=== PATIENT | male | born 1990 | race Caucasian/White ===

== ENCOUNTER 2024-04-16 16:00 | Emergency (ER) | payer MEDICAID ==
[~2024-04-16] VITALS: Ht 177.8 cm; Wt 90.7 kg
[2024-04-16 16:03] VITALS: BP_SYST 173; PULSE 110; RESP 17; TEMP 98.7; O2SAT 96
[2024-04-16] MEDS: NACL 0.9% 1,000 ML IV ONE (16:57)
[2024-04-16 16:59] LABS: BASOPHILS % (AUTO) 0.4 % (0.0-2.0); EOSINOPHILS % (AUTO) 0.1 % (0.0-4.0); HEMATOCRIT 44.5 % (36-54); HEMOGLOBIN 15.4 g/dL (14.0-18.0); LYMPHOCYTES # (AUTO) 0.6 K/uL (1.0-5.5); LYMPHOCYTES % (AUTO) 4.7 % (20.5-51.5); MEAN CORPUSCULAR HEMOGLOBIN 30 pg (27-31); MEAN CORPUSCULAR HGB CONC 35 % (32-36); MEAN CORPUSCULAR VOLUME 87 fL (79.0-98.0); MONOCYTES # (AUTO) 0.7 K/uL (0.0-1.0); MONOCYTES % (AUTO) 5.5 % (1.7-9.3); NEUTROPHILS # (AUTO) 10.9 K/uL (1.8-7.7); NEUTROPHILS % (AUTO) 89.3 % (40.0-70.0); PLATELET COUNT (AUTO) 401 K/uL (130-430); RED BLOOD CELL COUNT(AUTO) 5.13 MIL/uL (4.2-6.2); RED CELL DISTRIBUTION WIDTH 15.6 % (9.0-15.0); WHITE BLOOD COUNT (AUTO) 12.2 K/uL (4.8-10.8)
[2024-04-16] MEDS: KETOROLAC TROMETHAMINE 30 MG VIAL IVP ONE (17:07)
[2024-04-16] MEDS: ONDANSETRON HCL 4 MG/2 ML VIAL IVP ONE (17:07)
[2024-04-16 17:15] LABS: ANION GAP 15 (5-15); CALCIUM 9.9 mg/dL (8.4-11.0); CARBON DIOXIDE 23 mmol/L (23-29); CHLORIDE 104 mmol/L (98-107); CREATINE KINASE, TOTAL 608 U/L (39-308); GFR AFRICAN AMERICAN 48 mL/min (>90); GLUCOSE 82 mg/dL (74-106); LIPASE 66 U/L (16-77); POTASSIUM 3.6 mmol/L (3.5-5.1); SODIUM SERUM 142 mmol/L (136-145); UREA NITROGEN, BLOOD 18 mg/dL (8-21)
[2024-04-16 17:18] LABS: ALCOHOL, BLOOD < 3 mg/dL (<10); GFR NON AFRICAN-AMERICAN 39 mL/min (>90)
[2024-04-16 17:46] LABS: CKMB RELATIVE INDEX 0.6 (0.0-2.9); CREATINE KINASE MB 3.5 ng/mL (0-3.6)
[2024-04-16] MEDS: cefTRIAXone 1 GM IVPB PREMIX 50 ML IV ONE (18:13)
[2024-04-16 19:43] LABS: BLOOD, URINE 1+ (NEGATIVE); CLARITY/URINE CLEAR (CLEAR); COLOR,URINE YELLOW (YELLOW); GLUCOSE,URINE NEGATIVE (NEGATIVE); KETONES,URINE 3+ (NEGATIVE); LEUKOCYTE ESTERASE ,URINE NEGATIVE (NEGATIVE); NITRITE, URINE NEGATIVE (NEGATIVE); PROTEIN URINE 1+ (NEGATIVE); UROBILINOGEN,URINE 0.2 (0.2-1.0)
[2024-04-16 19:56] LABS: BACTERIA,URINE RARE /HPF (None Seen); BILIRUBIN,URINE 1+ (NEGATIVE); MUCUS,URINE None Seen /LPF (None Seen); RBC,URINE 0-3 /HPF (0-3); WBC,URINE 0-3 /HPF (0-3)
[2024-04-16 19:58] LABS: BARBITURATE, URINE NEGATIVE (NEG <=200); BENZODIAZEPINE, URINE NEGATIVE (NEG <=150); CANNABINOID, URINE POSITIVE (NEG <=50); COCAINE, URINE NEGATIVE (NEG <=150); METHAMPHETAMINES SCREEN,URINE NEGATIVE (NEG <=500); OPIATE, URINE NEGATIVE (NEG <=100); PHENCYCLIDINE SCREEN,URINE NEGATIVE (NEG <=25); UR TRICYCLIC ANTIDEPRESSANTS NEGATIVE (NEG <=300); URINE AMPHETAMINE NEGATIVE (NEG <=500); URINE METHADONE NEGATIVE (NEG <=200); URINE OXYCODONE SCREEN NEGATIVE (NEG <=100)
[2024-04-16] MEDS ORDERED: CIPR500T5 PO (20:09)
[2024-04-16 20:40] VITALS: BP_SYST 165; PULSE 98; RESP 17; TEMP 98.7; O2SAT 96
[2024-04-17] MEDS ORDERED: NITR-85 PO (11:36)
== END 2024-04-16 20:40 | disposition home or self-care (01) ==
LOC: SED 16:00
DX: N17.9 Acute kidney failure, unspecified (principal); N36.8 Other specified disorders of urethra; R10.84 Generalized abdominal pain; I10 Essential (primary) hypertension; F41.9 Anxiety disorder, unspecified; Z79.2 Long term (current) use of antibiotics
CPT/HCPCS: 99285; 74176; 96365; 96375; 96361; 80307; 80048; 81001; 82550; 82553; 83690; 85025; 87040; 36415; G0482; J0696; J1885; J2405; J7030; 81000; 81015